=== PATIENT | female | born 1990 | race Caucasian/White ===

== ENCOUNTER 2018-05-09 18:21 | Outpatient (CLI) | payer MEDICAID ==
[2018-05-09 20:11] LABS: ADD MAN DIFF? NO
[2018-05-09 20:42] LABS: BASOPHILS % 0.2 % (0.0-2.0); HEMATOCRIT 39.2 % (37.0-47.0); HEMOGLOBIN 13.3 g/dl (12.0-16.0); LYMPHOCYTES # 2.6 10^3/ul (0.8-2.9); LYMPHOCYTES % 25.5 % (15.0-51.0); MEAN CORPUSCULAR HEMOGLOBIN 31.3 pg (29.0-33.0); MEAN CORPUSCULAR HGB CONC 33.9 g/dl (32.0-37.0); MEAN CORPUSCULAR VOLUME 92.2 fl (82.0-101.0); MEAN PLATELET VOLUME 11.7 fl (7.4-10.4); MONOCYTE # 0.8 10^3/ul (0.3-0.9); MONOCYTES % 8.2 % (0.0-11.0); NEUTROPHIL # 6.7 10^3/ul (1.6-7.5); NEUTROPHILS % 65.7 % (39.0-77.0); PLATELET COUNT 216 10^3/UL (140-415); RED BLOOD COUNT 4.25 10^6/ul (4.20-5.40); RED CELL DISTRIBUTION WIDTH 12.7 % (11.5-14.5)
[2018-05-09 20:42] LABS: WHITE BLOOD COUNT 10.1 10^3/ul (4.8-10.8)
[2018-05-09 20:45] LABS: ALANINE AMINOTRANSFERASE 22 IU/L (13-69); ALBUMIN 4.2 g/dl (3.3-4.9); ALBUMIN/GLOBULIN RATIO 1.35; ALKALINE PHOSPHATASE 199 IU/L (42-121); ANION GAP 16 (8-16); ASPARTATE AMINO TRANSFERASE 25 IU/L (15-46); BILIRUBIN,INDIRECT 0.3 mg/dl (0-1.1); BILIRUBIN,TOTAL 0.3 mg/dl (0.2-1.3); BLOOD UREA NITROGEN 9 mg/dl (7-20); CALCIUM 9.2 mg/dl (8.4-10.2); CARBON DIOXIDE 24 mmol/L (21-31); CHLORIDE 103 mmol/L (97-110); CREATININE 0.53 mg/dl (0.44-1.00); GLUCOSE 78 mg/dl (70-220); POTASSIUM 3.8 mmol/L (3.5-5.1); SODIUM 139 mmol/L (135-144); TOTAL PROTEIN 7.3 g/dl (6.1-8.1)
== END 2018-05-09 22:30 | disposition home or self-care (01) ==
LOC: OBT 18:21 → L-D 18:21 → OBT 22:30
DX: O40.3XX0 Polyhydramnios, third trimester, not applicable or unspecified (principal); O16.3 Unspecified maternal hypertension, third trimester; Z3A.38 38 weeks gestation of pregnancy
CPT/HCPCS: 76815; 76818; 80053; 84443; 85025

== ENCOUNTER 2018-05-12 17:11 | Outpatient (CLI) | payer MEDICAID ==
[2018-05-12 19:30] LABS: ADD MAN DIFF? NO
[2018-05-12 19:33] LABS: WHITE BLOOD COUNT 10.4 10^3/ul (4.8-10.8)
[2018-05-12 19:33] LABS: BASOPHILS % 0.2 % (0.0-2.0); EOSINOPHILS % 0.1 % (0.0-7.0); HEMATOCRIT 37.2 % (37.0-47.0); HEMOGLOBIN 12.7 g/dl (12.0-16.0); LYMPHOCYTES # 2.5 10^3/ul (0.8-2.9); LYMPHOCYTES % 23.8 % (15.0-51.0); MEAN CORPUSCULAR HEMOGLOBIN 31.5 pg (29.0-33.0); MEAN CORPUSCULAR HGB CONC 34.1 g/dl (32.0-37.0); MEAN CORPUSCULAR VOLUME 92.3 fl (82.0-101.0); MEAN PLATELET VOLUME 12.1 fl (7.4-10.4); MONOCYTE # 0.9 10^3/ul (0.3-0.9); MONOCYTES % 9.1 % (0.0-11.0); NEUTROPHIL # 6.9 10^3/ul (1.6-7.5); NEUTROPHILS % 66.3 % (39.0-77.0); PLATELET COUNT 212 10^3/UL (140-415); RED BLOOD COUNT 4.03 10^6/ul (4.20-5.40)
[2018-05-12 19:53] LABS: ALANINE AMINOTRANSFERASE 29 IU/L (13-69); ALBUMIN 3.6 g/dl (3.3-4.9); ALBUMIN/GLOBULIN RATIO 1.02; ALKALINE PHOSPHATASE 176 IU/L (42-121); ANION GAP 14 (8-16); ASPARTATE AMINO TRANSFERASE 25 IU/L (15-46); BILIRUBIN,INDIRECT 0.4 mg/dl (0-1.1); BILIRUBIN,TOTAL 0.4 mg/dl (0.2-1.3); BLOOD UREA NITROGEN 9 mg/dl (7-20); CALCIUM 8.9 mg/dl (8.4-10.2); CARBON DIOXIDE 20 mmol/L (21-31); CHLORIDE 108 mmol/L (97-110); CREATININE 0.51 mg/dl (0.44-1.00); GLUCOSE 77 mg/dl (70-220); POTASSIUM 3.8 mmol/L (3.5-5.1); SODIUM 138 mmol/L (135-144); TOTAL PROTEIN 7.1 g/dl (6.1-8.1); URIC ACID 5.4 mg/dl (3.1-7.9)
[2018-05-12 20:11] LABS: INR 1.02; PROTIME 13.5 Sec (11.9-14.9); PT RATIO 1.1
[2018-05-12 20:12] LABS: PARTIAL THROMBOPLASTIN TIME 25.8 Sec (25.0-35.0)
[2018-05-12 20:51] LABS: ADD UMIC YES; UR ASCORBIC ACID NEGATIVE (NEGATIVE); UR BACTERIA FEW /HPF (NONE SEEN); UR BILIRUBIN (Dip) NEGATIVE (NEGATIVE); UR BLOOD (Dip) NEGATIVE (NEGATIVE); UR CLARITY CLEAR (CLEAR); UR COLOR STRAW (YELLOW); UR GLUCOSE (Dip) NEGATIVE (NEGATIVE); UR KETONES (Dip) NEGATIVE (NEGATIVE); UR LEUKOCYTE ESTERASE (Dip) TRACE Leu/ul (NEGATIVE); UR NITRITE (Dip) NEGATIVE (NEGATIVE); UR RBC 0 /HPF (0-5); UR SPECIFIC GRAVITY (Dip) 1.011 (1.003-1.030); UR SQUAMOUS EPITHELIAL CELL FEW /HPF (FEW); UR TOTAL PROTEIN (Dip) NEGATIVE (NEGATIVE); UR UROBILINOGEN (Dip) NEGATIVE (NEGATIVE); UR WBC 2 /HPF (0-5)
== END 2018-05-13 00:06 | disposition home or self-care (01) ==
LOC: OBT 17:11 → L-D 17:11
DX: O26.893 Other specified pregnancy related conditions, third trimester (principal); R03.0 Elevated blood-pressure reading, without diagnosis of hypertension; Z3A.38 38 weeks gestation of pregnancy
CPT/HCPCS: 76818; 80053; 81001; 84560; 85025; 85384; 85610; 85730

== ENCOUNTER 2018-05-30 11:08 | Inpatient (IN) | payer MEDICAID ==
[2018-05-30] MEDS ORDERED: LIDOCAINE 1% (MPF) 30 ML INJ INJ (12:30)
[2018-05-30] MEDS ORDERED: IBUPROFEN 600 MG TAB PO (12:30)
[2018-05-30] MEDS ORDERED: CARBOPROST 250 MCG INJ IM (12:30)
[2018-05-30] MEDS ORDERED: METHYLERGONOVINE 0.2 MG INJ IM (12:30)
[2018-05-30] MEDS ORDERED: OXYTOCIN 30 UNITS/LR 500 ML IV ×2 (12:30)
[2018-05-30] MEDS ORDERED: BUTORPHANOL 1 MG INJ IV (12:30)
[2018-05-30] MEDS ORDERED: BUTORPHANOL 2 MG INJ IV (12:30)
[2018-05-30] MEDS ORDERED: MISOPROSTOL 200 MCG TAB PR (12:30)
[2018-05-30 12:43] LABS: ADD MAN DIFF? NO
[2018-05-30 12:44] LABS: BASOPHILS % 0.2 % (0.0-2.0); EOSINOPHILS % 0.1 % (0.0-7.0); HEMATOCRIT 39.6 % (37.0-47.0); HEMOGLOBIN 13.6 g/dl (12.0-16.0); LYMPHOCYTES # 2.1 10^3/ul (0.8-2.9); LYMPHOCYTES % 24.2 % (15.0-51.0); MEAN CORPUSCULAR HEMOGLOBIN 31.8 pg (29.0-33.0); MEAN CORPUSCULAR HGB CONC 34.3 g/dl (32.0-37.0); MEAN CORPUSCULAR VOLUME 92.5 fl (82.0-101.0); MEAN PLATELET VOLUME 11.6 fl (7.4-10.4); MONOCYTE # 0.8 10^3/ul (0.3-0.9); MONOCYTES % 9.8 % (0.0-11.0); NEUTROPHIL # 5.6 10^3/ul (1.6-7.5); NEUTROPHILS % 65.1 % (39.0-77.0); PLATELET COUNT 215 10^3/UL (140-415); RED BLOOD COUNT 4.28 10^6/ul (4.20-5.40); RED CELL DISTRIBUTION WIDTH 13.3 % (11.5-14.5)
[2018-05-30 12:44] LABS: WHITE BLOOD COUNT 8.6 10^3/ul (4.8-10.8)
[2018-05-30 13:05] LABS: INR 0.92; PROTIME 12.4 Sec (11.9-14.9)
[2018-05-30 13:06] LABS: PARTIAL THROMBOPLASTIN TIME 25.1 Sec (25.0-35.0)
[2018-05-30] MEDS: AMPICILLIN 2 GM/NS (PMX) 100 ML IV (13:42)
[2018-05-30 13:46] LABS: HEPATITIS B SURFACE ANTIGEN NEGATIVE (NEGATIVE)
[2018-05-30] MEDS: LACTATED RINGER'S 1,000 ML IV* ×2 (13:54→18:16)
[2018-05-30] MEDS: DINOPROSTONE 10 MG VAG SUPP VAG (15:34)
[2018-05-30] MEDS: AMPICILLIN 1 GM/NS (PMX) 50 ML IV ×2 (17:06→21:24)
[2018-05-30 19:54] LABS: RAPID PLASMA REAGIN NONREACTIVE (NR)
[2018-05-30] MEDS: LACTATED RINGER'S 1,000 ML IV (23:17)
[2018-05-31] MEDS: FENTAnyl 2MCG/ML-ROPIV 0.2% 100 ML BAG EPI ×2 (00:43→07:29)
[2018-05-31] MEDS: AMPICILLIN 1 GM/NS (PMX) 50 ML IV ×3 (01:08→08:30)
[2018-05-31] MEDS ORDERED: OXYTOCIN 30 UNITS/LR 500 ML IV ×2 (02:00→09:30)
[2018-05-31] MEDS: LACTATED RINGER'S 1,000 ML IV* (04:20)
[2018-05-31] MEDS: DEXTROSE 5%-LR 1,000 ML IV (07:38)
[2018-05-31] MEDS ORDERED: CEFAZOLIN 2 GM/50 ML (PMX) 50 ML IVPB (07:54)
[2018-05-31] MEDS ORDERED: CEFAZOLIN 2 GM/50 ML (PMX) 50 ML IV (08:00)
[2018-05-31] MEDS ORDERED: METOCLOPRAMIDE 10 MG INJ (08:15)
[2018-05-31] MEDS ORDERED: morphine SULFATE/PF (10 MG/10 ML) INJ (08:15)
[2018-05-31] MEDS ORDERED: KETOROLAC 30 MG INJ (08:15)
[2018-05-31] MEDS ORDERED: LIDOCAINE 1.5%/EPI MPF (SDV) 30 ML VIAL (08:16)
[2018-05-31] MEDS: CEFAZOLIN 2 GM/50 ML (PMX) 50 ML IV ×2 (08:16→16:55)
[2018-05-31] MEDS ORDERED: PHENYLephrine (100 MCG/ML) 10ML SYG (08:45)
[2018-05-31] MEDS: OXYTOCIN 30 UNITS/LR 500 ML IV ×2 (09:14→13:21)
[2018-05-31] MEDS ORDERED: OXYCODONE/ACETAMINOPHEN (5/325) TAB PO ×2 (09:30)
[2018-05-31] MEDS ORDERED: CARBOPROST 250 MCG INJ IM (09:30)
[2018-05-31] MEDS ORDERED: METHYLERGONOVINE 0.2 MG INJ IM (09:30)
[2018-05-31] MEDS ORDERED: MISOPROSTOL 200 MCG TAB PR (09:30)
[2018-05-31] MEDS ORDERED: DIPHENHYDRAMINE 50 MG INJ IV ×3 (10:30)
[2018-05-31] MEDS ORDERED: ONDANSETRON 4 MG INJ IV ×3 (10:30)
[2018-05-31] MEDS ORDERED: morphine (1 MG/ML) 10ML SYRINGE IV ×3 (10:30)
[2018-05-31] MEDS ORDERED: NALOXONE (0.4 MG/ML) INJ IV ×2 (10:30)
[2018-05-31] MEDS ORDERED: morphine 2 MG INJ IV ×3 (10:30)
[2018-05-31] MEDS: KETOROLAC 30 MG INJ IV ×2 (10:45→21:58)
[2018-05-31] MEDS: LACTATED RINGER'S 1,000 ML IV (23:40)
[2018-06-01] MEDS: CEFAZOLIN 2 GM/50 ML (PMX) 50 ML IV (01:38)
[2018-06-01 08:03] LABS: ADD MAN DIFF? NO
[2018-06-01 08:09] LABS: BASOPHILS % 0.2 % (0.0-2.0); EOSINOPHILS % 0.2 % (0.0-7.0); HEMATOCRIT 30.8 % (37.0-47.0); HEMOGLOBIN 10.3 g/dl (12.0-16.0); LYMPHOCYTES % 15.6 % (15.0-51.0); MEAN CORPUSCULAR HEMOGLOBIN 31.2 pg (29.0-33.0); MEAN CORPUSCULAR HGB CONC 33.4 g/dl (32.0-37.0); MEAN CORPUSCULAR VOLUME 93.3 fl (82.0-101.0); MEAN PLATELET VOLUME 11.7 fl (7.4-10.4); NEUTROPHIL # 9.8 10^3/ul (1.6-7.5); NEUTROPHILS % 75.5 % (39.0-77.0); PLATELET COUNT 175 10^3/UL (140-415); RED CELL DISTRIBUTION WIDTH 13.5 % (11.5-14.5)
[2018-06-01] MEDS: KETOROLAC 30 MG INJ IV (08:44)
[2018-06-01] MEDS: FERROUS SULFATE (EC) 325 MG TAB PO ×2 (10:16→23:52)
[2018-06-01] MEDS: IBUPROFEN 600 MG TAB PO ×3 (12:00→23:52)
[2018-06-02] MEDS: IBUPROFEN 600 MG TAB PO ×3 (05:37→18:00)
[2018-06-02] MEDS: FERROUS SULFATE (EC) 325 MG TAB PO (08:53)
[2018-06-03] MEDS: FERROUS SULFATE (EC) 325 MG TAB PO ×3 (00:11→21:57)
[2018-06-03] MEDS: IBUPROFEN 600 MG TAB PO ×5 (00:11→23:55)
[2018-06-04] MEDS: IBUPROFEN 600 MG TAB PO (05:57)
[2018-06-04] MEDS: FERROUS SULFATE (EC) 325 MG TAB PO (09:31)
[2018-06-04] MEDS: DIPHTH/TET/ACEL PERTUSS (ADULT) 0.5 ML VIAL IM* (09:34)
== END 2018-06-04 19:00 | disposition home or self-care (01) | DRG 766 ==
LOC: L-D 11:08 → PP1 05-31 11:25
PROVIDERS: Obstetrics & Gynecology
PROC: 10D00Z1 Extraction of Products of Conception, Low, Open Approach (ICD-10-PCS; principal; 2018-05-31 08:30)
PROC: 10907ZC Drainage of Amniotic Fluid, Therapeutic from Products of Conception, Via Natural or Artificial Opening (ICD-10-PCS; 2018-05-31 08:30)
PROC: 3E0P7VZ Introduction of Hormone into Female Reproductive, Via Natural or Artificial Opening (ICD-10-PCS; 2018-05-31 08:30)
PROC: 3E033VJ Introduction of Other Hormone into Peripheral Vein, Percutaneous Approach (ICD-10-PCS; 2018-05-31 08:30)
DX: O48.0 Post-term pregnancy (principal); Z37.0 Single live birth; Z3A.41 41 weeks gestation of pregnancy; O77.0 Labor and delivery complicated by meconium in amniotic fluid
CPT/HCPCS: 62319; 76815; 85025; 85610; 85730; 86592; 86850; 86900; 86901; 87340; 99464